=== PATIENT | female | born 1985 | race Caucasian/White ===

== ENCOUNTER 2016-07-23 05:00 | Inpatient (IN) | payer OTHER ==
--- NOTE | ~2016-07-23 | HP ---
Unit #: [id number] #: [id number] Patient: NIKOLE CARRERO [id number] [place] [address] [id number] MR#: [id number] NAME: NIKOLE CARRERO. ROOM: P207 Age: 30 Sex: F Admission Date: 07/23/2016 : 1985 Attending Physician: Keon Blanchard M.D. Admitting Physician: Keon Blanchard M.D. Primary Care Physician: Caro Byrd M.D. HISTORY AND PHYSICAL HISTORY OF PRESENT ILLNESS Nikole is a 30 year old admitted to [address] [place] [address] because of her continued polysubstance abuse which includes IV heroin and benzodiazepines. PAST MEDICAL HISTORY 1. Long history of illicit substance abuse to include IV heroin. 2. Hepatitis C. 3. Seizure disorder. 4. History of genital herpes. PAST SURGICAL HISTORY Nothing reported. ALLERGIES Neurontin SOCIAL HISTORY Smokes one pack per day. Denies alcohol. Admits to a long history of polysubstance abuse to include benzodiazepines and IV heroin. FAMILY HISTORY Medically noncontributory. REVIEW OF SYSTEMS CONSTITUTIONAL: No fever or chills. HEENT: Denies any sore throat, ear pain or runny nose. CARDIOVASCULAR: Denies chest pain, irregular heart rhythm or palpitations. CHEST: Denies shortness of breath or cough. No hemoptysis. GASTROINTESTINAL: Denies nausea, vomiting, diarrhea or chronic constipation. ENDOCRINE: Denies history of increased thirst or urination. No recent significant weight loss or gain. GENITOURINARY: Denies dysuria, frequency, or hematuria. SKIN: Denies any rashes. HEMATOLOGIC: Denies history of increased bleeding or bruising. MUSCULOSKELETAL: Denies any hot, swollen joints. No generalized muscle pain. NEUROLOGIC: Denies problems with vision or speech. No frequent, severe headaches. No numbness, tingling or weakness in any extremities. Denies loss of bladder or bowel control. CURRENT MEDICATIONS Unit #: [id number] #: [id number] Patient: NIKOLE CARRREO 1. Detox protocol 2. Lasix 40 mg q day 3. KCL 20 mEq q day PHYSICAL EXAMINATION GENERAL: Alert, well-nourished, in no apparent distress. VITAL SIGNS: Blood pressure 114/70, heart rate 70, respirations 16, temperature 98.6. WEIGHT: 135 pounds. HEIGHT: 5'3". SKIN: Warm and dry without rash or lesion. HEENT: Normocephalic. TMs not viewed. Oral and nasal passages clear. Conjunctivae clear. Pupils equal, round and reactive to light and accommodation. Extraocular movements intact. NECK: Supple without lymphadenopathy or thyromegaly. HEART: Regular rate and rhythm without murmur. LUNGS: Clear. ABDOMEN: Soft, nontender. : Not done. EXTREMITIES: No evidence of cyanosis, clubbing or edema. Moves all extremities without focal deficit. NEUROLOGICAL: Grossly within normal limits. Cranial Nerves: II: Visual tariq are intact. III, IV AND : Extraocular movements are intact. Pupils are equal, round and reactive to light. V: Facial sensation is grossly normal. VII: Facial movements and expression are normal. VIII: Auditory acuity grossly intact. IX, X: Uvula is midline. Phonation is normal. XI: Patient shrugs shoulders and turns head normally. XII: Tongue protrudes in the midline. Sensory and Motor Function: Sensory and motor sensation is grossly normal. Motor: moves all extremities well. Coordination: Gait is normal. Deep Tendon Reflexes: Intact. IMPRESSION Psychiatric admission RECOMMENDATIONS PSYCHIATRIC: Per psychiatrist. MEDICAL: I see no contraindications to participating in facility's activities. MEDICAL PROGNOSIS Good. MEDICAL CONDITION Stable. Dictated by... Filomena Donahue P.A.-C. for Beverly Price/jae Unit #: [id number] #: [id number] Patient: NIKOLE CARRERO TD: 07/24/2016 01:57 JOB #: [id number] HISTORY AND PHYSICAL Page 1 of 1 X Filomena Donahue HISTORY AND PHYSICAL
--- NOTE | ~2016-07-23 | PA ---
Unit #: [id number] #: [id number] Patient: CHRIS CARRERO [id number] [place] [address] [id number] MR#: [id number] NAME: CHRIS CARRERO. ROOM: P207 Age: 30 Sex: F Admission Date: 07/23/2016 : 1985 Date of Assessment: 07/23/2016 Attending Physician: Keon Blanchard M.D. Admitting Physician: Keon Blanchard M.D. Primary Care Physician: Caro Byrd M.D. PSYCHIATRIC ASSESSMENT IDENTIFYING INFORMATION The patient is a 30-year-old white female admitted with recent relapse of heroin use. CHIEF COMPLAINT I got depressed and relapsed. INFORMANT The patient, reliability is fair. HISTORY OF PRESENT ILLNESS The patient is a 30-year-old white female who has a history of opioid dependence. The patient reports that approximately three weeks ago she "got depressed" without specific precipitant and began intravenous heroin abuse. Once again the patient was last treated at this facility several years ago under similar circumstances and had maintained sobriety for a fairly significant period of time but reports that she did start using about three weeks ago reporting intravenous use of approximately one half gram daily. The patient reports that she has strained relationship with her mother and is unhappy in her current job. Her COW score on admission was not completed. The patient was reporting positive suicidal ideation at the time of admission with a plan to overdose. PAST PSYCHIATRIC HISTORY As above. PAST MEDICAL HISTORY Significant for history of hepatitis C. The patient also had reported a history of seizure disorder and asthma in the past and had in the past been on Topamax and Ventolin but neither of these medications are at this point in place apart from the Ventolin, but neither of these medications are at this point in place apart from the Ventolin. Medications -- KCL, Mucinex, Lasix, Ventolin. ALLERGIES None. FAMILY HISTORY Noncontributory SOCIAL HISTORY The patient lives with her mother. Her substance use history is noted previously. Unit #: [id number] #: [id number] Patient: CHRIS CARRERO MENTAL STATUS EXAMINATION At this time reveals the patient to be a well-developed, well-nourished white female, appearing her stated age. She appears to be in significant physical distress related to opioid withdrawal during interview. She is awake, alert, and oriented in all spheres. Her mood is dysphoric. Her affect constricted. Speech is generally relevant and coherent. There are no gross deficits in memory or cognition noted. Intelligence is judged to be in the average range based on fund of knowledge. The patient is cooperative throughout the interview. She is currently endorsing positive suicidal ideation. She denies homicidal ideation. She denies any psychotic symptoms. Her judgment and insight appear to be intact. ASSETS AND LIABILITIES ASSETS: Motivation for change. LIABILITIES: Lack of resources. DIAGNOSTIC IMPRESSION 1. Opioid use disorder 2. Hepatitis C 3. Asthma 4. History of seizure disorder PSYCHIATRIC PLAN/TREATMENT GOALS The patient remains hospitalized for stabilization. Suicidal precautions are in place and routine detoxification protocol for opioids has been initiated. We will restart the patient's previously prescribed home medications apart from Mucinex which he should not require at this point. ESTIMATED LENGTH OF STAY Three to five days with follow up to take place through the auspices of community mental health resources. I will have the patient's social studies teacher discuss post discharge treatment options with her. Dictated by... Keon Blanchard M.D. ERICA/jae TD: 07/23/2016 23:52 JOB #: [id number] PSYCHIATRIC ASSESSMENT Page 1 of 1 X Keon Blanchard MD X PSYCHIATRIC ASSESSMENT
--- NOTE | ~2016-07-23 | DS ---
Unit #: [id number] #: [id number] Patient: CHRIS CARRERO [id number] [place] [address] [id number] MR#: [id number] NAME: CHRIS CARRERO. ROOM: P207 Age: 30 Sex: F Admission Date: 07/23/2016 : 1985 Discharge Date: 07/25/2016 Attending Physician: Keon Blanchard M.D. Primary Care Physician: Caro Byrd M.D. DISCHARGE SUMMARY REASON FOR ADMISSION The patient is a 30-year-old, white female admitted with a recent relapse of heroin use. HOSPITAL COURSE The patient was admitted to CDU and placed on routine detoxification protocol for opioids. Her stay in the hospital was a brief and uneventful one. She was fully detoxed by 07/25/2016 and requested discharge at that date citing a wish to return to outpatient programming at [facility]. Discharge was ordered. FINAL DIAGNOSES Opioid use disorder. DISPOSITION On discharge, the patient was discharged on the following medications: 1. Klor-Con M20 one tablet daily for hyperkalemia. 2. Lasix 40 mg daily for hypertension. 3. Proventil HFA 2 puffs q.4 hours p.r.n. shortness of air. DIET AND ACTIVITY No dietary or physical restrictions placed on the patient at the time of discharge. FOLLOWUP Follow up will take place through the auspices of [facility]. PROGNOSIS Patient's prognosis is fair. Dictated by... Keon Blanchard M.D. CB/lena TD: 07/26/2016 10:29 JOB #: [id number] Unit #: [id number] #: [id number] Patient: CHRIS CARRERO DISCHARGE SUMMARY Page 1 of 1 X Keon Blanchard MD X DISCHARGE SUMMARY
--- NOTE | ~2016-07-23 | PN ---
Unit #: [id number] #: [id number] Patient: CHRIS CARRERO [id number] [facility] [address] [place] [address] [id number] I MR#: [id number] NAME: CHRIS CARRERO. ROOM: P207 Age: 30 Sex: F Admission Date: 07/23/2016 : 1985 Attending Physician: Keon Blanchard M.D. Admitting Physician: Keon Blanchard M.D. Primary Care Physician: Beverly Delaney PROGRESS NOTES DATE 07/24/2016 DISCUSSION The patient continues to complain of significant discomfort related to opioid withdrawal and is today complaining of significant upper respiratory and nasal congestion. I will ask for medical consult and expect a.m. discharge. Dictated by... Keon Blanchard M.D. CB/bzg TD: 07/24/2016 14:00 JOB #: [id number] [facility]PH[facility] PROGRESS NOTES Page 1 of 1 X Keon Blanchard MD PROGRESS NOTE
[2016-07-24 09:40] LABS: URINE APPEARANCE CLEAR; URINE BILIRUBIN NEG (NEG); URINE BLOOD NEG (NEG); URINE COLOR YELLOW; URINE GLUCOSE NEG (NEG); URINE KETONE NEG (NEG); URINE LEUKOCYTE ESTERASE NEG (NEG); URINE NITRATE NEG (NEG); URINE PH 5.5 (5-8); URINE PROTEIN NEG (NEG); URINE SPECIFIC GRAVITY 1.003 (1.003-1.035); URINE UROBILINOGEN 0.2 MG/DL (NEG)
[2016-07-24 09:58] LABS: BASOPHIL# 0.2 X10e3 (0-0.3); BASOPHIL% 1.4 % (0-2.5); EOSINOPHIL# 0.6 X10e3 (0-0.7); EOSINOPHIL% 3.7 % (0.0-7.0); HEMATOCRIT 45.6 % (35.0-45.0); LYMPHOCYTE# 2.8 X10e3 (1.0-3.5); LYMPHOCYTE% 17.5 % (17.0-45.0); MEAN CELL VOLUME 94.9 FL (83-96); MEAN CORPUSCULAR HEMOGLOBIN 31.3 PG (28-34); MEAN PLATELET VOLUME 10.2 FL (6.5-11.5); MONOCYTE# 1.4 X10e3 (0-1.0); MONOCYTE% 9.2 % (3.0-12.0); NEUTROPHIL# 10.8 X10e3 (1.5-7.1); NEUTROPHIL% 68.2 % (40-75); PLATELET COUNT 327 X10e3 (140-420); RED CELL DISTRIBUTION WIDTH 13.1 % (11.0-15.5); WHITE BLOOD COUNT 15.8 X10e3 (4.0-10.5)
[2016-07-24 10:01] LABS: DIFF IND YES
[2016-07-24 10:27] LABS: ALBUMIN SERUM 3.1 g/dL (3.5-5.0); BILIRUBIN,TOTAL 0.5 mg/dL (0.2-2.0); CALCIUM SERUM 9.2 mg/dL (8.4-10.2); CREATININE SERUM 0.8 mg/dL (0.6-1.4); GLOM FILT RATE Estimated 98.3 mL/min (>60); POTASSIUM 4.3 mmol/L (3.5-5.1)
[2016-07-24 10:35] LABS: PLATELET ESTIMATE NORMAL (NORMAL); TEAR DROP CELLS PRESENT
[2016-07-24 10:39] LABS: AMPHETAMINE NEG (NEG); BARBITURATES NEG (NEG); BENZODIAZEPINES NEG (NEG); COCAINE NEG (NEG); MARIJUANA NEG (NEG); OPIATES POS (NEG); TRICYCLIC ANTIDEPRESSANTS NEG (NEG); U METHADONE NEG (NEG)
== END 2016-07-25 14:00 | disposition home or self-care (01) | DRG 897 ==
LOC: P2S 09:41
PROVIDERS: Specialist
PROC: HZ2ZZZZ Detoxification Services for Substance Abuse Treatment (ICD-10-PCS; principal; 2016-07-23)
DX: F11.20 Opioid dependence, uncomplicated (principal); R45.851 Suicidal ideations; B19.20 Unspecified viral hepatitis C without hepatic coma; J45.909 Unspecified asthma, uncomplicated; G40.909 Epilepsy, unspecified, not intractable, without status epilepticus; F17.210 Nicotine dependence, cigarettes, uncomplicated
CPT/HCPCS: 80053; 80307; 81003; 84703; 85025; 86592